=== PATIENT | female | born 1985 | race Caucasian/White ===

== ENCOUNTER 2022-12-23 16:39 | Emergency (ER) | payer MEDICARE, SELFPAY ==
[2022-12-23 17:07] VITALS: BP 99/44; PULSE 61; RESP 12; TEMP 37.4; O2SAT 97
--- NOTE | 2022-12-23 17:37 | ED.EYEPROB ---
HPI - Eye Problem General Chief complaint: Eye Problems Stated complaint: left eye irritation Time Seen by Provider: 12/23/22 17:37 Source: patient Mode of arrival: ambulatory Limitations: no limitations History of Present Illness HPI Narrative: 37-year-old female with a history of Down syndrome presenting for c/o left eye redness and irritation since yesterday. Reports clear drainage, and outer eyelid crust. Denies injury or fb. Denies photophobia, vision changes, headache, sinus congestion. MD chief complaint: eye pain Related Data Home Medications Medication Instructions Recorded Confirmed clindamycin phosphate 1 % lotion topical 12/23/22 doxycycline hyclate 100 mg tablet mg 12/23/22 fluconazole 150 mg tablet mg 12/23/22 sertraline 50 mg tablet mg 12/23/22 Allergies Allergy/AdvReac Type Severity Reaction Status Date / Time Penicillins Allergy Unknown Verified 12/23/22 17:38 Review of Systems Review of Systems: CONSTITUTIONAL: Denies body aches, fever, chills EYES:Endorses redness and drainage to left eye; Denies pain to eye, FB sensation, photophobia or visual changes ENT: Denies rhinorrhea, congestion, sore throat, or otalgia. CARDIOVASCULAR: Denies chest pain, palpitations RESPIRATORY: Denies cough or dyspnea. GASTROINTESTINAL: Denies abdominal pain, nausea, vomiting, or diarrhea. SKIN: Denies rash, itching, or wounds. MUSCULOSKELETAL: Denies back pain, joint pain, or myalgia. NEUROLOGIC: Denies headache, numbness, tingling, or weakness. All systems reviewed & are unremarkable except as noted in HPI and below PMFSH Past Medical History Medical History (Updated 12/23/22 @ 17:50 by Padmaja Gil APRN) Down's syndrome Surgical History Surgical History (Updated 12/23/22 @ 17:50 by Padmaja Gil APRN) H/O foot surgery History of tonsillectomy Comments At time of signature, I have reviewed and agree with nursing past medical, surgical, social and family history unless otherwise noted. Please see nursing chart for further information. There is no relevant family history pertinent to the presenting complaint Exam Narrative: GENERAL: Well-appearing, facies c/w down's syndrome HEAD: Normocephalic, atraumatic. EYES: Left conjunctival injection, No apparent purulent drainage; no eye lid swelling/redness c/w stye. PERRLA EOMI. Lid eversion shows no foreign body ENT: Mucous membranes pink and moist. No rhinorrhea. TMs normal bilaterally. Throat normal. Uvula midline. CHEST: Clear to auscultation. HEART: Regular rate and rhythm. ABDOMEN: Soft, nontender, nondistended SKIN: Warm, dry, no rash. Normal skin turgor. NEURO: No focal deficits. Alert and oriented x3 Course Course Emergency Course: Patient is aware of diagnosis, understands and agrees to treatment plan. Anticipatory guidance given. Patient agrees to follow-up as directed and is aware of reasons to seek care at the emergency department. Portions of this record may have been created with voice recognition software Level of Care: Express Care Visit Vital Signs Vital signs: Vital Signs Temperature 99.3 F 12/23/22 17:07 Pulse Rate 61 12/23/22 17:07 Respiratory Rate 12 12/23/22 17:07 Blood Pressure 99/44 L 12/23/22 17:07 Pulse Oximetry 97 12/23/22 17:07 Oxygen Delivery Room Air 12/23/22 17:07 Temperature 99.3 F 12/23/22 17:07 Pulse Rate 61 12/23/22 17:07 Respiratory Rate 12 12/23/22 17:07 Blood Pressure 99/44 L 12/23/22 17:07 Pulse Oximetry 97 12/23/22 17:07 Oxygen Delivery Room Air 12/23/22 17:07 MDM - Eye Problem MDM Narrative Medical decision making narrative: Discussed physical exam findings. Visual acuity reviewed. Mother declined pool lamp exam, stating she denied fb sensation or injury/trauma. Advised supportive measures and signs/symptoms to go to the ER. Pt is appropriate for outpt treatment and f/u. Differential Diagnosis Differential diagno
== END 2022-12-23 17:53 | disposition home or self-care (01) ==
PROVIDERS: Emergency Provider Nurse Practitioner Family
DX: H10.32 Unspecified acute conjunctivitis, left eye (principal); Q90.9 Down syndrome, unspecified
CPT/HCPCS: 99213; G0463